=== PATIENT | female | born 1935 | race Caucasian/White ===

== ENCOUNTER 2022-03-23 11:47 | Outpatient (CLI) | payer MEDICARE, BC, SELFPAY | END 2022-03-23 11:48 | disposition home or self-care (01) | LOC: NFLDREF 11:47 | PROVIDERS: PCP Family Medicine; Visit Provider Physician Assistant | DX: Z01.419 Encounter for gynecological examination (general) (routine) without abnormal findings (principal); Z85.44 Personal history of malignant neoplasm of other female genital organs | CPT/HCPCS: 87624; 88175 ==

== ENCOUNTER 2022-04-09 09:19 | Outpatient (CLI) | payer MEDICARE, BC, SELFPAY ==
--- NOTE | 2022-04-09 09:43 | CRLHL7_ITS ---
For Patients: As a result of the Cures Act, medical imaging exams and procedure reports are released immediately into your electronic medical record. You may view this report before your referring provider. If you have questions, please contact your health care provider. RIGHT BREAST ULTRASOUND, 04/09/2022 PLEASE SEE DIGITAL DIAGNOSTIC BILATERAL MAMMOGRAM PERFORMED SAME DAY CRL:gema ribeiro/Dictated by: Kalpesh Daniel MD @ 04/09/2022 10:51:00 AM (Electronically Signed)
--- NOTE | 2022-04-09 09:43 | CRLHL7_ITS ---
For Patients: As a result of the Cures Act, medical imaging exams and procedure reports are released immediately into your electronic medical record. You may view this report before your referring provider. If you have questions, please contact your health care provider. DIGITAL DIAGNOSTIC BILATERAL MAMMOGRAM USING TOMOSYNTHESIS AND COMPUTER-AIDED DETECTION, 04/09/2022 RIGHT BREAST ULTRASOUND, 04/09/2022 CLINICAL HISTORY: RIGHT breast palpable lump. COMPARISON: 04/06/2021, 03/08/2020, 02/10/2019. TECHNIQUE: Digital BILATERAL mammogram in four projections. Tomosynthesis and CAD utilized. Real-time ultrasound imaging of RIGHT breast with imaging documentation. Scanning was performed by both the technologist and the radiologist. BREAST COMPOSITION: The breasts are heterogeneously dense, which may obscure small masses. FINDINGS: 3D CC and 3D MLO mammograms submitted bilaterally. Post surgical changes to the RIGHT breast noted in the lower outer quadrant. Benign calcifications noted throughout the RIGHT breast. No suspicious masses or architectural distortion. Benign calcifications also present within the LEFT breast. No adenopathy. Targeted RIGHT breast ultrasound performed in the area of concern. At 7 o`clock RIGHT breast 4 cm from the nipple there is a small subcutaneous nodule measuring 5 x 4 x 6 millimeters consistent with a sebaceous cyst. Post surgical changes noted with benign calcified fat necrosis. IMPRESSION: Benign findings RIGHT breast from prior surgery and incidental sebaceous cyst. No evidence of malignancy. RECOMMENDATIONS: Annual screening mammography. BI-RADS Category 2: Benign Results and recommendations discussed with the patient. A lay language report of this examination will be provided to the patient. Dictated by Kalpesh Daniel MD @ 04/09/2022 10:51:20 AM jj/Dictated by: Kalpesh Daniel MD @ 04/09/2022 10:51:00 AM (Electronically Signed)
== END 2022-04-09 09:20 | disposition home or self-care (01) ==
PROVIDERS: PCP Family Medicine; Visit Provider Physician Assistant
DX: N63.10 Unspecified lump in the right breast, unspecified quadrant; D05.10 Intraductal carcinoma in situ of unspecified breast
CPT/HCPCS: 76642; 77066; G0279

== ENCOUNTER 2023-06-17 09:36 | Outpatient (CLI) | payer MEDICARE, BC, SELFPAY ==
--- NOTE | 2023-06-17 10:15 | CRLHL7_ITS ---
For Patients: As a result of the Century Cures Act, medical imaging exams and procedure reports are released immediately into your electronic medical record. You may view this report before your referring provider. If you have questions, please contact your health care provider. BILATERAL SCREENING MAMMOGRAM WITH COMPUTER-AIDED DETECTION AND TOMOSYNTHESIS TECHNIQUE: CC and MLO views were obtained. These mammographic images have been obtained using full-field digital technique. These mammographic images were interpreted with the benefit of computer-aided detection. Breast tomosynthesis was used in this interpretation. COMPARISON FILM: 04/09/22, 04/06/21, 03/08/20. FINDINGS: The breasts are heterogeneously dense, which may obscure small masses. IMPRESSION: There is no radiographic evidence for malignancy. ASSESSMENT: BI-RADS Category 2: Benign RECOMMENDATION: Routine screening mammogram in 1 year. A lay language report of this examination will be provided to the patient. KALPESH US M.D. Diagnostic Radiologist [email or web address] Transcribed: 4:[address]/Dictated by: Kalpesh Us MD @ 06/17/2023 11:26:00 AM (Electronically Signed)
== END 2023-06-17 09:37 | disposition home or self-care (01) ==
LOC: MAMMO 09:37
PROVIDERS: PCP Family Medicine; Visit Provider Physician Assistant
DX: Z12.31 Encounter for screening mammogram for malignant neoplasm of breast (principal); R92.2 Inconclusive mammogram; Z85.3 Personal history of malignant neoplasm of breast
CPT/HCPCS: 77063; 77067

== ENCOUNTER 2023-07-03 10:28 | Outpatient (CLI) | payer MEDICARE, BC, SELFPAY ==
[2023-07-03 10:40] VITALS: BP 149/81; PULSE 85; RESP 16; O2SAT 97
[2023-07-03] MEDS: TETRACAINE 0.5% OPHTH 1 DROP EYE-BOTH ×3 (10:42→11:13)
[2023-07-03] MEDS: BRIMONIDINE TARTRATE 0.2% OPHTH 1 DROP EYE-BOTH ×2 (10:43→11:20)
--- NOTE | 2023-07-03 11:27 | P.OPTPRC_ITS ---
Procedure Note Date of procedure: 07/03/23 Will [facility] bill your pro fee for this procedure?: Yes Procedure Description: SURGEON: Beatriz Adamson MD PREOPERATIVE DIAGNOSIS: Posterior capsular opacity, right and left eye POSTOPERATIVE DIAGNOSIS: Posterior capsular opacity, right and left eye PROCEDURE: YAG laser capsulotomy, both eyes ANESTHESIA: Topical. ESTIMATED BLOOD LOSS: None PATHOLOGY SPECIMEN: None COMPLICATIONS: None INDICATIONS: See consult note for details. The risks, benefits and alternatives of the procedure were explained to the patient, who elected to proceed and signed informed consent to do so. PROCEDURE: The patient was brought to the pre-holding area where the right and left eyes were identified as the operative eyes. I placed my initials above the eyes. The following was given in both eyes: The patient received 2 sets of 1 drop of 0.5% tetracaine and 1 drop of 1% tropicamide. They also received 1 drop of 0.2% brimonidine. They received 1 drop of 0.5% tetracaine immediately prior to bringing them back for the procedure. The patient was then brought to the procedure room where the right and left eyes were again identified as the operative eyes. A YAG Peetr capsulotomy lens was placed on the right eye. The laser was administered using a total number of 9 shots with an energy of 2.4 mJ per shot for a total energy of 22 mJ. The patient tolerated the procedure well. A YAG Peter capsulotomy lens was placed on the left eye. The laser was administered using a total number of 9 shots with an energy of 2.4 mJ per shot for a total energy of 22 mJ. The patient tolerated the procedure well. DISPOSITION: The patient was taken back to the pre-holding area and given 1 drop of 0.2% brimonidine in both eyes. They were discharged to home in stable condition. The patient was instructed to call me or go to the emergency department with any sudden change, including dramatic loss of vision, severe pain in the eye or eyebrow region, nausea, or vomiting. The patient was instructed to use the 0.2% brimonidine 1 drop 2 times a day in both eyes for 1 week. The patient will follow up in the clinic in 1-2 weeks.
== END 2023-07-03 11:21 | disposition home or self-care (01) ==
LOC: EYE PRC 10:29
PROVIDERS: PCP Family Medicine; Visit Provider Ophthalmology
DX: H26.9 Unspecified cataract (principal)
CPT/HCPCS: 66821; A9270

== ENCOUNTER 2024-06-19 09:04 | Outpatient (CLI) | payer MEDICARE, BC, SELFPAY ==
--- OUTSIDE RECORDS SUMMARY | 2024-06-19 09:12 | XMS_ITS | Clinical Summary ---
Author Organization [facility] Address [address] [place] [id number] Care Team Providers Care Fish Protector Name Role Phone Octavio Lopez MD Primary Care Provider [phone] Source Comments You are receiving this document as you are listed as the primary care provider,follow-up provider, or the patient has been referred to you for consultation.This is in compliance with the Medicare and[facility]centive [facility],which states Providers who transition their patient to another setting of careor provider of care or refers their patient to another provider of care shouldprovide summary care record for each transition of care or referral. [id number] Allergies Active Allergy Reactions Criticality Noted Date Comments Ezetimibe Other, see comments 03/19/2012 Legs heavy and weak Hydrochlorothiazide Other, see comments 10/13/2022 Low potassium, and intolerance of oral potassium. Hydrocodone-Acetaminophen Itching 08/19/2013 PN: made scalp itch Medications Medication Sig Dispensed Refills Start Date End Date Status aspirin, enteric-coated 81 MG enteric coated tablet Take 1 Tablet (81 mg) by mouth. 04/17/2010 Active fluticasone (FLONASE) 50 MCG/ACT nasal solution 1 [place]. 08/27/2017 Active levothyroxine (SYNTHROID) 125 MCG tablet Take 0.5 Tablets (62.5 mcg) by mouth. 08/27/2017 Active Coenzyme Q10 100 MG Take 1 Capsule (100 mg) by mouth. 11/23/2015 Active atorvastatin (LIPITOR) 80 MG tablet Take 1 Tablet (80 mg) by mouth daily at bedtime. 05/19/2022 Active losartan (COZAAR) 50 MG tablet Take 1 Tablet (50 mg) by mouth daily. 05/15/2022 Active zolpidem (AMBIEN) 10 MG tablet Take 1 Tablet (10 mg) by mouth at bedtime as needed. 04/19/2022 Active Respiratory Therapy Supplies (CARETOUCH 2 CPAP [employer]) [facility] [place] for [place] use at pressure: 8.6 cmw , Heated humidifier x 1 q 5 yr, Humidifier chamber x 1 q 6 mo, nasal face mask x1 q 3mos, with cushion x 2 q mo, standard tubing x 1 q 3 mo, Headgear x 1 q 6 mo, Filters: Disposable x 2 q mo non-disposable filters x1 q 6mo, Length of Need: 99 months, Frequency of use: Daily 03/29/2022 Active spironolactone (ALDACTONE) 25 MG tablet Take 1 Tablet (25 mg) by mouth daily. 04/16/2023 Active Active Problems Problem Noted Date Diagnosed Date H/O dysplastic nevus 07/03/2022 Overview (07/03/2022): Inflamed hyperpigmented junctional dysplastic melanocytic nevus with moderate atypia, mid back, out with biopsy 08/2013 H/O nonmelanoma skin cancer 07/03/2022 Overview (07/10/2023): BCC: -left upper back, out with biopsy 03/2015 -left anterior shoulder, s/p ED&C 06/2015 -right upper arm-posterior, removed with biopsy 06/2022 Ductal carcinoma in situ (DCIS) of breast 2018 Osteoporosis 09/24/2017 Mixed hyperlipidemia 06/10/2016 Vulvar cancer 03/29/2009 Obstructive sleep apnea 03/28/2009 Allergic rhinitis 01/24/2007 Overview (07/11/2023): with congestion Degeneration of lumbar or lumbosacral interverte bral disc 01/24/2007 Essential hypertension 01/24/2007 Osteoarthrosis, unspecified whether generalized or localized, pelvic region and thigh 01/24/2007 Hypothyroidism 01/24/2007 Social History Tobacco Use Types Packs/Day Years Used Date Smoking Tobacco: Never Smokeless Tobacco: Never Sex and Gender Information Value Date Recorded Sex Assigned at Not on file Gender Identity Not on file Sexual Orientation Not on file Plan of Treatment Health Maintenance Due Date Last Done Comments Medicare Annual Wellness Visit 1935 Dexa 2002 RSV (1 - 1-dose 75+ series) 2012 COVID-19 Vaccine ( season) 2024 06/26/2022, 01/30/2022, 06/20/2021, Additional history exists Influenza (#1) 2024 06/12/2023, 05/10, 04/25/2021, Additional history exists DTaP/Tdap/Td (3 - Tdap) 05/30/2032 05/30/20, 07/23/2011, 03/09/2003 Zoster/Shingles Completed 11/16/2019, 12/2019, 02/24/2009 Pneumococcal 65+ Yrs Completed 10/12/2022, 12/30/2014, 04/07/2009 HepA Aged Out No longer eligi ble based on patient's age to complete this topic HepB Aged Out No longer eligi ble based on patient's age to complete this topic Hib Aged Out No longer eligi ble based on patient's age to complete this topic IPV ([place]) Aged Out No longer eligi ble based on patient's age to complete this topic RSV Aged Out No longer eligi ble based on patient's age to complete this topic MCV4 Aged Out No longer eligi ble based on patient's age to complete this topic Care Teams Fish Protector Relationship Specialty Start Date End Date Octavio Lopez MD [address] [place] [address] PCP - General 06/14/15
--- OUTSIDE RECORDS SUMMARY | 2024-06-19 09:12 | XMS_ITS | Clinical Summary ---
Author Organization [facility] Address [place], [place] [address] Care Team Providers Care Mammography Tech Name Role Phone Octavio Lopez MD Primary Care Provider Marilee Kinney Unavailable [phone] Audie Segura MD Unavailable [phone] Allergies Active Allergy Reactions Criticality Noted Date Comments Hydrochlorothiazide Hypokalemia 10/13/2022 Low potassium, and intolerance of oral potassium. Hydrocodone-Acetaminophen Itching 01/24/2007 scalp itchy Ezetimibe Other - Describe In Comment Field 03/19/2012 Legs heavy and weak Medications Medication Sig Dispensed Refills Start Date End Date Status aspirin enteric coated 81 mg tablet Take 1 tablet by mouth once daily with a meal. 0 04/17/2010 Active coenzyme q10 (COQ-10) 100 mg cap Take 1 capsule by mouth once daily. 0 11/23/2015 Active multivitamin (MVI) tablet Take 1 tablet by mouth once daily. 0 11/23/2015 Active fluticasone (50 mcg per actuation) nasal solution (FLONASE)Indications:V asomotor rhinitis SHAKE LIQUID AND USE 1 SPRAY IN EACH NOSTRIL EVERY DAY 48 mL 3 09/09/2018 Active atorvastatin (LIPITOR) 80 mg tabletIndications:Hype rlipidemia, unspecified hyperlipidemia type Take 1 Tablet (80 mg) by mouth at bedtime. 90 Tablet 3 10/14/2023 Active levothyroxine (SYNTHROID) 125 mcg tabletIndications:Acqu ired hypothyroidism Take 0.5 Tablets (62.5 mcg) by mouth once daily. 45 Tablet 3 10/14/2023 Active losartan (COZAAR) 50 mg tabletIndications:Esse ntial hypertension Take 1 Tablet (50 mg) by mouth once daily. 90 Tablet 3 10/14/2023 Active spironolactone (ALDACTONE) 25 mg tabletIndications:Deni gn essential HTN Take 1 Tablet (25 mg) by mouth every morning. 90 Tablet 3 10/14/2023 Active zolpidem (AMBIEN) 10 mg tabletIndications:Prim antelmo insomnia TAKE 1 TABLET (10 MG) BY MOUTH AT BEDTIME NEEDED FOR SLEEP 90 Tablet 1 04/24/2024 Active metoprolol succinate (Toprol XL) 25 mg Sustained-Release tabletIndications:Palp itations Take 1 Tablet (25 mg) by mouth once daily. 90 Tablet 4 04/28/2024 Active sertraline (ZOLOFT) 25 mg tabletIndications:Marketing Copywriter anabell insomnia Take 0.5 Tablets (12.5 mg) by mouth once daily. 30 Tablet 2 05/04/2024 Active CPAPIndications:Obstru ctive sleep apnea RESMED CPAP (E0601) machine for home use at pressure: 7.6 cmw, Choice of mask (A7030 or A7034) w/full face cushion (A7031) x1/mo, nasal cushion (A7032) x2/mo, or nasal pillows (A7033) x 2/mo; Length of Need: 99 months; Frequency of use: Daily 1 Each 11 05/04/2024 Active Active Problems Patient Care Coordination No te Formatting of this note migh t be different from the original. Sees gynecologic dermatology, Dr. Lisset Fournier for f/u vulvar cancer. Problem Noted Date Diagnosed Date Depression, recurrent 02/10/2024 Osteoporosis (completed 5 yrs of Alendronate 202 3) 09/24/2017 Prediabetes 06/10/2016 Mixed hyperlipidemia 06/10/2016 Vulvar cancer 03/29/2009 ALEENA, 03/16/2009 AHI- 32, positional 75 03/28/2009 Sensorineural hearing loss, bilateral 02/28/2009 Unspecified hypothyroidism 01/24/2007 Degeneration of lumbar or lumbosacral interverte bral disc 01/24/2007 Osteoarthrosis, unspecified whether generalized or localized, pelvic region and thigh 01/24/2007 Unspecified essential hypertension 01/24/2007 Other malignant neoplasm of skin, site unspecifi ed 01/24/2007 Allergic rhinitis, cause unspecified 01/24/2007 Overview (01/24/2007): with congestion Resolved Problems Problem Noted Date Diagnosed Date Resolved Date Depression, recurrent 07/15/20232023 Personal history of colonic polyps 04/11/2012 10/14/2023 Overview (04/11/2012): Colonoscopy 04/2012 diverticulosis repeat in 5 years Vitamin D deficiency 02/27/2010 013 Vitamin D deficiency 02/24/2009 019 Long-term (current) use of anticoagulants 07/12/2008 10/22/2017 Other and unspecified hyperlipidemia 01/24/2007 08/31/2019 Insomnia, unspecified 01/24/20072021 Encounters Date Type Department Care Team Description 05/04/2024 10:30 AM CDT Office Visit [facility] [address] [place] [address] Keyon Emerson MD Sleep Follow-up 05/04/2024 Travel 04/28/2024 9:00 AM CDT Office Visit [facility] [address] [place] [address] Britton Bradley MD Consult (Palpitations/Echo 03/04/24 /) 04/28/2024 Travel 04/24/2024 Refill [facility] [address] [place] [address] Octavio Lopez MD Refill Request (Zolpidem) 04/01/2024 Lab Requisition [facility] [phone] Charline Anton PA-C from Last 3 Months Immunizations Name Administration Dates Next Due AMB Influenza, (Flumist) Rosmery e Intranasal,LAIV4 (Flu Clinic Only) 06/09/2008 COVID-19 VACCINE SPIKEVAX (M ODERNA 50MCG/0.5ML) 12YO+ PFS 07/15/2023 COVID-19 vaccine ([employer] NTWholeWorldBand 30mcg/0.3mL) PF, MDV 01/30/2022,06/20/2021,11/03/2020,2020 Influenza Virus, Unspecified 05/22/2016,06/09/20 15 Influenza, High-dose Inactivated 019,05/13/2018,05/28/2017,2015,05/19/2015,06/02/2014 Influenza, High-dose Quadriv alent Inactivated 06/12/2023,05/23/2022,04/25/2021,2019 Influenza, IIV3 (Age >=3 years) 05/23/20 13,05/29/2012,06/08/2011,2009 Influenza, Inactivated AIIV4 (Age 65+ Years) Preserv Free 04/25/2021 Influenza, Inactivated IIV3 (Age 65+ Years) Preserv Free 06/09/2018 Pneumococcal Conj 20-valent (Prevnar 20) 10/12/2022 Pneumococcal Poly,23-Valent (Pneumovax) 04/07/2009 Pneumococcal conj 13-Valent (Prevnar 13) 12/30/2014 Td (Age >=7 Years) 03/09/2003 Tdap 05/30/2022,07/23/2011 Zoster (Shingrix-RZV, recombinant) 11/16/2019, Zoster (Zostavax-ZVL, live) 02/24/2009 Family History Medical History Relation Name Comments Hypertension Brother 1 Diabetes Brother 2 Alcohol/Drug Brother 3 at 49 - diabetes and alcoholism Alcohol/Drug Father Hypertension Maternal Grandmother Heart a ttack at age 50 Cancer Mother cervix Hypertension Mother Anesthesia Problem Neg. Hypertension Sister 1 Alcohol/Drug Sister 2 age 65 cancer of the liver and sepsis Cancer Sister 3 liver Cancer Son age 5 Relation Name Status Comments Brother 1 Brother 2 Brother 3 Father Maternal Grandmother Mother Neg. Sister 1 Sister 2 Sister 3 Son Social History Tobacco Use Types Packs/Day Years Used Date Smoking Tobacco: Never Smokeless Tobacco: Never Tobacco Cessation:Counseling Given: No Alcohol Use Standard Drinks/Week Comments Yes 14 (1 standard drink = 0.6 oz pu re alcohol) 1-2 drinks/day PHQ-2 Answer Date Recorded PHQ-2 TOTAL SCORE 2 10/14/2023 Social Connections Answer Date Recorded Frequency of Communication with Friends and Fami ly 0 10/14/2023 Financial Resource Strain Answer Date R ecorded Difficulty of Paying Living Expenses 3 10/14/2023 Difficulty of Paying Living Expenses Not on file 10/14/2023 Food Insecurity Answer Date Recorded Worried About Running Out of Food in the Last Ye ar 1 10/14/2023 Transportation Needs Answer Date Record ed Lack of Transportation (Medical) 1 10/14/2023 Housing Stability Answer Date Recorded Unable to Pay for Housing in the Last Year 1 02/10/2024 Sex and Gender Information Value Date Recorded Sex Assigned at Not on file Gender Identity Not on file Sexual Orientation Not on file Obstetrics History Para Term AB IAB SAB Ectopic Multiple Livin g Live Births 3 2 Date Outcome GA Total Labor Labor/2nd/3rd Weight Sex Type Anes PTL Rosmery A1 A5 Name Clin Comments First child of cancer Last Filed Vital Signs Vital Sign Reading Time Taken Comments Blood Pressure 122/71 05/04/2024 10:29 AM CDT Pulse 80 05/04/2024 10:29 AM CDT Temperature 36.4 ??C (97.6 ??F) 08/31/2019 10:[address] Respiratory Rate 16 11/04/2018 10:29 AM SENIOR SALES ADMINISTRATOR Oxygen Saturation 98% 05/04/2024 10:29 AM CDT Inhaled Oxygen Concentration - - Weight 68 kg (150 lb) 05/04/2024 10:29 AM CDT Height 160 cm (5' 3) 05/04/2024 10:29 AM CDT Body Mass Index 26.57 05/04/2024 10:29 AM CDT Plan of Treatment Upcoming Encounters Date Type Department Care Team (Late st Contact Info) Description 07/13/2024 10:55 AM SENIOR SALES ADMINISTRATOR Office Visit [facility] [address] [place] [address] Octavio Lopez MD [address] [place] [address] 08/13/2024 10:30 AM SENIOR SALES ADMINISTRATOR Office Visit [facility] [address] [place] [address] Keyon Emerson MD [address] [place] [address] Health Maintenance Due Date Last Done Comments RSV vaccine for adults or (1 - 1-dose 75+ series) 2012 Influenza for age 65+ 05/10/2024 06/12/2023 , 05/23/2022, 04/25/2021, Additional history exists Depression screening for age 12+ 10/14/2024 10/14/2023, 10/13/2022, 10/12/2022, Additional history exists Medicare Wellness for age 65+ 10/14/2024, 10/12/2022, 10/10/2021, Additional history exists BMI (ht and wt on same day) for age 18+ 05/04/2025 05/04/2024, 10/14/2023, 05/02/2023, Additional history exists Tetanus booster 05/30/2032 05/30/2022, 07/10, 03/09/2003 Zoster (shingles) series for age 50+ Completed 11/16/2019, 09/12/2019, 02/24/2009 Tdap Completed 05/30/2022, 07/23/2011 Pneumococcal series for age 65+ Completed 10/12/2022, 12/30/2014, 04/07/2009 DEXA/DXA scan for age 65+ Completed 2022, 09/05/2017, 08/11/2015, Additional history exists COVID-19 vaccine series Completed 05/29/20, 07/15/2023, 06/26/2022, Additional history exists Procedures Procedure Name Priority Date/Time Associated Diagnosis Comments LAB TRACKING EVENT Routine 03/31/2024 12 :30 PM CDT GENERAL ACCOUNTANT THIN PREP PAP SCREEN IMAGED Routine 03/31/2024 12:30 PM CDT HPV HIGH RISK Routine 03/31/2024 12:30 PM CDT XR DXA BONE DENSITY PERIPHERAL Routine 10/22/2022 1:27 PM SENIOR SALES ADMINISTRATOR Osteoporosis, unspecified osteoporosis type, unspecified pathological fracture presence from Last 3 Months or Most Recently Relevant to Health Maintenance Results * LAB TRACKING EVENT (03/31/2024 12:30 PM CDT) Other (Other) Client Collect / Unknown 03/31/2024 12:30 PM CDT 04/01/2024 3:44 PM CDT Charline Anton PA-C LAB BILL ONLY [facility] [address] [place] [address], * GENERAL ACCOUNTANT THIN PREP PAP SCREEN IMAGED (03/31/2024 12:30 PM CDT) Case Report Gynecologic Cytology Report ? Case: [id number] ? Authorizing Provider: ??Charline Anton PA-C ?Collected: ? 03/31/2024 1230 ? Ordering Location: ? [facility] ?Received: ?04/01/2024 1712 ? First Screen: ?Chacha Moore ? Specimen: ?GENERAL ACCOUNTANT ThinPrep Vial Screening, Vaginal Cuff ? 04/08/2024 2:21 PM CDT [facility] INTERPRETATION/ RESULT NEGATIVE FOR INTRAEPITHELIAL LESION OR MALIGNANCY (NIL) (none) 04/08/2024 2:[address] [facility] IMEN ADEQUACY Satisfactory for evaluation 04/08/2024 2:[address] [facility] HPV REQUEST HPV and PAP 04/08/2024 2:[address] [facility] Date of LMP 04/08/2024 2:21 PM CDT [facility] Comment:unknown Last Pap Date 03/26/2023 04/08/2024 2:[address] [facility] Last Pap Result NIL 2:[address] [facility] Abnormal Pap or Thomas Bx in last 5 years No 04/08/2024 2:[address] [facility] Menstrual Status Hysterectomy-cerv ix absent 04/08/2024 2:[address] [facility] Thomas Bx Done Today No 04/08/2024 2:[address] [facility] Additional Information 04/08/2024 2:21 PM CDT [facility] Comment: hx malignant neoplasm of vulva Interpreted at [facility] - [address] [facility] [address] [address] Automated Review Successful 04/08/2024 2:[address] [facility] Comment:Specimen processed s uccessfully by automated foot drill operator device, ThinPrep Imaging System, [employer] ANCILLARY TESTING GENERAL ACCOUNTANT HPV Ordered, Please see separate report 04/08/2024 2:[address] [facility] Note The pap test is a screening technique, not a diagnostic procedure. It is used primarily to screen for squamous cancers and precursor lesions. Published studies have shown that it is subject to both false negative and false positive results. The pap test should not be used as the sole means to diagnose or exclude pre-malignant and malignant lesions. 04/08/2024 2:21 PM CDT [facility] Other (Vaginal Cuff) 03/31/2024 12:30 PM CDT 04/01/2024 5:12 PM CDT Charline Corral Dese[facility] Performing Organization Address [facility] Co de Phone Number [facility] [address] [place] [address], * HPV HIGH RISK (03/31/2024 12:30 PM CDT) TYPE 16 Negative Negative 04/04/2024 2:15 PM CDT [facility] TYPE 18 Negative Negative 04/04/2024 2:15 PM CDT [facility] OTHER HIGH RISK TYPES Negative Negative 04/04/2024 2:15 PM CDT [facility] Other (Vaginal Cuff) 03/31/2024 12:30 PM CDT 04/01/2024 5:12 PM CDT Narrative [facility] - 04/04/2024 2:15 PM CDT HPV types 16, 18, 31, 33, 35, 39, 45, 51, 52, 56, 58, 59, 66 and 68 DNA were undetectable or below the pre-set threshold. Methodology: [employer] Norma 4800 HPV Test Charline Ellis Anton PA-C MICROBIOLOGY Performing Organization Address [facility] de Phone Number [facility] [address] [place] [address], * (ABNORMAL) XR DXA BONE DENSITY PERIPHERAL (10/22/2022 1:27 PM SENIOR SALES ADMINISTRATOR) Anatomical Region Laterality Modality ARMS Other Impressions 10/29/2022 7:56 AM SENIOR SALES ADMINISTRATOR Osteoporosis. RECOMMENDATIONS: The National Osteoporosis Foundation recommends pharmacologic treatment for patients with T-scores of -2.5 or less, patients with prior history of fragility fractures, or patients with 10-year probability of greater than 3% at hips or greater than 20% of suffering major osteoporotic fractures. Recommend continued optimization of calcium and vitamin D intake through dietary means and/or supplementation and regular exercise. Consider pharmacologic therapy for osteoporosis. Follow-up bone density reading in 2 years if therapy initiated to assess therapeutic efficacy. ?? Consider drug holiday from Fosamax due to being on medications for 5 years. ??Consider alternative therapies. Brisa Flores PA-C [facility] 10/29/2022 Narrative 10/29/2022 7:56 AM SENIOR SALES ADMINISTRATOR For Patients: Results are automatically released to your [facility] ([employer]) account once available, in compliance with federal regulations. This means that you may see your results before your provider has had a chance to review them. Please allow 2-3 business days for your provider to comment on the results. XR DXA Bone Mineral Density (BMD) EXAM LOCATION: [address] [address] PATIENT NAME: Susie Goodwin DATE OF : 1935 EXAM DATE: 10/22/2022 REQUESTING PROVIDER: Octavio Lopez MD GENDER AT : female HEIGHT: 5' 2.8 (10/12/2022) WEIGHT: ??163 lb (10/12/2022) MENOPAUSAL STATUS: Postmenopausal RACE/ETHNICITY: White RISK FACTORS: Height Loss (2 inches or more) and White Race CURRENT MEDICATION FOR BONE LOSS: Alendronate (Fosamax) INDICATION: Follow-up of existing osteoporosis COMPARISON DATE(S): 2016 DXA scans are compared to prior studies for a patient only when the two (or more) studies were performed on the same scanner. It is not possible to compare data generated on one scanner to data from another because there are not standards in DXA equipment. This applies even if the two scanners are made by the same change release manager. PROCEDURE: Dual-energy x-ray absorptiometry performed with routine technique. Reporting is completed in the form of a T-score. The T-score represents the standard deviation from peak bone mass based on young healthy adult. A Z-score is used for diagnosis in premenopausal women, and for men under the age of 50. FINDINGS: RESULT FOREARM LEFT Forearm distal radius BMD: 0.555 g/cm2 T-Score: - 2.0 Z-Score: + 1.3 Change from prior in 2017: ??Increase 17.3%. RIGHT Forearm distal radius BMD: 0.515 g/cm2 T-Score: - 2.6 Z-Score: + 0.6 Change from prior in 2017: ??Increase 2.0%. WHO criteria: Normal: T-score at or above -1 SD Osteopenia: T-score between -1.1 and -2.4 SD Osteoporosis: T-score at or below -2.5 SD Octavio Lopez MD DEXA from Last 3 Months or Most Recently Relevant to Health Maintenance Advance Directives * Full Code (Latest Code Status on File) Date Activated Date Inactivated Comments 04/06/2009 12:55 PM 04/07/2009 1:43 PM * Full Code Date Activated Date Inactivated Comments 04/06/2009 7:59 AM 04/06/2009 12:55 PM Care Teams Mammography Tech Relationship Specialty Start Date End Date Octavio Lopez MD [address] [place] [address] PCP - General Family Practice 07/23/11 Marilee Kinney AuD [address] [place] [address] Audiology 02/28/09 Audie Segura MD Ana Sheppard [facility] [address] [place] [address] Endocrinology Endocrinology 05/27/13
--- NOTE | 2024-06-19 09:15 | CRLHL7_ITS ---
For Patients: As a result of the Century Cures Act, medical imaging exams and procedure reports are released immediately into your electronic medical record. You may view this report before your referring provider. If you have questions, please contact your health care provider. BILATERAL SCREENING MAMMOGRAM WITH COMPUTER-AIDED DETECTION AND TOMOSYNTHESIS TECHNIQUE: CC and MLO views were obtained. These mammographic images have been obtained using full-field digital technique. These mammographic images were interpreted with the benefit of computer-aided detection. Breast Tomosynthesis was used in this interpretation. COMPARISON FILM: 06/17/23, 04/09/22, 04/06/21. FINDINGS: The breasts are heterogeneously dense, which may obscure small masses. IMPRESSION: There is no radiographic evidence for malignancy. ASSESSMENT: BI-RADS Category 1: Negative RECOMMENDATION: Routine screening mammogram in 1 year. A lay language report of this examination will be provided to the patient. Kalpesh Daniel M.D. Diagnostic Radiologist [email or web address] SP/Dictated by: Kalpesh Daniel MD @ 06/19/2024 10:04:00 AM (Electronically Signed)
== END 2024-06-19 09:05 | disposition home or self-care (01) ==
LOC: MAMMO 09:08
PROVIDERS: PCP Family Medicine; Visit Provider Physician Assistant
DX: Z12.31 Encounter for screening mammogram for malignant neoplasm of breast (principal); R92.333 Mammographic heterogeneous density, bilateral breasts
CPT/HCPCS: 77063; 77067

== ENCOUNTER 2024-07-07 10:12 | Emergency (ER) | payer MEDICARE, BC, SELFPAY ==
[2024-07-07] VITALS (18 sets, daily range): BP systolic 129–145; BP diastolic 78–86; PULSE 83–103; RESP 18; TEMP 36.7; O2SAT 95–99; BMI 25.2
--- NOTE | 2024-07-07 10:52 | CRLHL7_ITS ---
For Patients: As a result of the Century Cures Act, medical imaging exams and procedure reports are released immediately into your electronic medical record. You may view this report before your referring provider. If you have questions, please contact your health care provider. Indication: Syncope/unconscious yesterday Technique: Noncontrast sagittal T1 weighted, axial T2 fast spin echo, FLAIR, and diffusion weighted images of the head. Comparison: No prior studies available for comparison at this institution. Findings: Multiple scattered foci of increased T2 signal within the periventricular and subcortical white matter of both cerebral hemispheres. Moderate cerebral and cerebellar parenchymal volume loss. Partially empty sella. The optic chiasm, pineal gland, and cerebellar tonsils are unremarkable. The ventricles, sulci and gyri are of normal size, shape and contour for age and degree of atrophy. No regions of restricted diffusion. No pathologic susceptibility artifacts. Midline structures are centrally located. No convincing evidence of suspicious intra- or extra-axial fluid collections. Bilateral pseudophakia. Moderate mastoid effusions. Impression: 1. No radiographic evidence of acute intracranial abnormalities. 2. Moderate supratentorial and infratentorial white matter changes are non-specific but most likely related to small vessel ischemic disease. Moderate cerebral volume loss. 3. Moderate mastoid effusions Dictated by Kalpesh Marino MD @ 07/07/2024 1:04:23 PM (Electronically Signed)
--- OUTSIDE RECORDS SUMMARY | 2024-07-07 11:26 | XMS_ITS | Clinical Summary ---
Author Organization [email or web address] [facility] Address [place], [place] [address] Care Team Providers Care Diabetes Manager Name Role Phone Octavio Lopez MD Primary Care Provider Diana Marilee Daniela Unavailable [phone] Audie Segura MD Unavailable [phone] Allergies Active Allergy Reactions Criticality Noted Date [...] 4 04/28/2024 Active sertraline (ZOLOFT) 25 mg tabletIndications:Bow Rehairer anabell insomnia Take 0.5 Tablets (12.5 mg) [...] Encounters Date Type Department Care Team Description 07/07/2024 Nurse Triage [facility] [address] [place] [address] Maribel Verma PA Fall (Triage) 06/19/[address] [facility] Scanner 1 scan: (1-Ord) HARTWELL, SCREENING BILATERAL, 06/19/2024 05/04/2024 10:30 AM CDT Office Visit [facility] [address] [place] [address] Keyon Emerson MD Sleep Follow-up 05/04/2024 Travel 04/28/2024 9:00 AM CDT Office Visit [facility] [place] [facility] [address] [place] [address] Britton Bradley MD Consult (Palpitations/Echo 03/04/24 /) 04/28/2024 Travel 04/24/2024 Refill [facility] [address] [place] [address] Octavio Lopez MD Refill Request (Zolpidem) from Last 3 Months Immunizations Name Administration Dates Next Due AMB Influenza, (Flumist) Rosmery e Intranasal,LAIV4 (Flu Clinic Only) 06/09/2008 COVID-19 VACCINE SPIKEVAX (M ODERNA 50MCG/0.5ML) 12YO+ PFS 07/15/2023 COVID-19 vaccine (Pfizer-Bio NTech 30mcg/0.3mL) PF, MDV 01/30/2022,06/20/2021,11/03/2020,2020 Influenza Virus, Unspecified [...] 2 10/14/2023 Social Connections Answer Date Recorded Do you often feel lonely or isolated from those around you? 0 02/10/2024 Financial Resource Strain Answer Date R ecorded Difficulty of Paying Living Expenses 3 10/14/2023 Difficulty of Paying Living Expenses Not on file 10/14/2023 Food Insecurity Answer Date Recorded Do you worry your food will run out before you are able to buy more? 1 02/10/2024 Transportation Needs Answer Date Record ed Does lack of transportation keep you from medica l appointments? 1 02/10/2024 Does lack of transportation keep you from work, meetings or getting things that you need? 1 02/10/2024 Housing Stability Answer Date Recorded What is your housing situation today? 1 02/10/2024 Sex and Gender Information Value [...] ST Respiratory Rate 16 11/04/2018 10:29 AM PRIVATE EQUITY ANALYST Oxygen Saturation 98% 05/04/2024 10:29 AM CDT Inhaled Oxygen Concentration - - Weight 68 kg (150 lb) 05/04/2024 10:29 AM CDT Height 160 cm (5' 3) 05/04/2024 10:29 AM CDT Body Mass Index 26.57 05/04/2024 10:29 AM CDT Plan of Treatment Upcoming Encounters Date Type Department Care Team (Late st Contact Info) Description 07/13/2024 10:55 AM PRIVATE EQUITY ANALYST Office Visit [facility] [address] [place] [address] Octavio Lopez MD [address] [place] [address] 08/13/2024 10:30 AM PRIVATE EQUITY ANALYST Office Visit [facility] [address] [place] [address] Keyon Emerson MD [address] [place] [address] Health Maintenance Due Date Last Done Comments [...] Procedure Name Priority Date/Time Associated Diagnosis Comments SCAN-MAMMOGRAPHY REPORT 06/19/2024 12:00 AM CDT XR DXA BONE DENSITY PERIPHERAL Routine 10/22/2022 1:27 PM PRIVATE EQUITY ANALYST Osteoporosis, unspecified osteoporosis type, unspecified pathological fracture presence from Last 3 Months or Most Recently Relevant to Health Maintenance Results * SCAN-MAMMOGRAPHY REPORT (06/19/2024 12:00 AM CDT) Anatomical Region Laterality Modality Other Scanner OTHER * (ABNORMAL) XR DXA BONE DENSITY PERIPHERAL (10/22/2022 1:27 PM PRIVATE EQUITY ANALYST) Anatomical Region Laterality Modality ARMS Other Impressions 10/29/2022 7:56 AM PRIVATE EQUITY ANALYST Osteoporosis. RECOMMENDATIONS: The National Osteoporosis Foundation recommends [...] years. ??Consider alternative therapies. Brisa Flores PA-C [facility] 10/29/2022 Narrative 10/29/2022 7:56 AM PRIVATE EQUITY ANALYST For Patients: Results are automatically released to your [employer] ([email or web address] account once available, in compliance with federal regulations. This means that you may see your results before your provider has had a chance to review them. Please allow 2-3 business days for your provider to comment on the results. XR DXA Bone Mineral Density (BMD) EXAM LOCATION: [facility] [address] [facility] [address] PATIENT NAME: Susie Goodwin DATE OF : [...] two scanners are made by the same manufacturing production technician. PROCEDURE: Dual-energy x-ray absorptiometry performed with routine [...] 7:59 AM 04/06/2009 12:55 PM Care Teams Diabetes Manager Relationship Specialty Start Date End Date Octavio Lopez MD [address] [place] [address] PCP - General Family Practice 07/23/11 Marilee Ortiz AuD [address] [place] [address] Audiology 02/28/09 Audie Segura MD [address] [facility] [address] [place] [address] Endocrinology Endocrinology 05/27/13
--- OUTSIDE RECORDS SUMMARY | 2024-07-07 11:26 | XMS_ITS | Clinical Summary ---
Author Organization [facility] Address [address] [place] [address] Care Team Providers Care Patient Financial Rep Name Role Phone Octavio Lopez MD Primary Care Provider [phone] Source Comments You are receiving this document as you are listed as the primary care provider,follow-up provider, or the patient has been referred to you for consultation.This is in compliance with the Medicare and[facility] Hospital[facility] EHR Incentive Program,which states Providers who transition their patient to another setting of careor provider of care or refers their patient to another provider of care shouldprovide summary care record for each transition of care or referral. [employer] Allergies Active Allergy Reactions Criticality Noted Date [...] fluticasone (FLONASE) 50 MCG/ACT nasal solution 1 [place]. 08/27/2017 Active levothyroxine (SYNTHROID) 125 MCG tablet [...] Respiratory Therapy Supplies (CARETOUCH 2 CPAP HOSE EXCHANGE FLOOR MANAGER) [facility] [place] for [place] use at pressure: [...] age to complete this topic Care Teams Patient Financial Rep Relationship Specialty Start Date End Date Octavio Lopez MD [address] [place] [address] PCP - General 06/14/15
[2024-07-07 11:29] LABS: Basophils Absolute Auto 0.03 K/uL (0.00-0.30); Basophils Percent Auto 0.4 % (0.0-3.0); Eosinophils Absolute Auto 0.13 K/uL (0.00-0.50); Eosinophils Percent Auto 1.7 % (0.0-7.0); Hematocrit 37.2 % (33.0-51.0); Hemoglobin* 12.2 gm/dL (12.0-16.0); Immature Granulocytes Abs Auto 0.01 K/uL (0.00-0.30); Immature Granulocytes Pct Auto 0.1 %; Lymphocytes Absolute Auto 1.59 K/uL (0.90-2.90); Lymphocytes Percent Auto 20.6 % (20-44); Mean Corpuscular HGB Conc 33 gm/dL (32-36); Mean Corpuscular Hemoglobin 32 pg (26-34); Mean Corpuscular Volume 97 fL (80-100); Monocytes Percent Auto 6.6 % (0.0-11.0); Neutrophils Absolute Auto 5.44 K/uL (1.7-7.0); Neutrophils Percent Auto 70.6 % (42.0-72.0); Platelet Count* 247 K/uL (140-440); RDW Coefficient of Variation % 13.1 % (11.5-15.5); Red Blood Count 3.82 m/uL (4.00-5.20); White Blood Count* 7.71 K/uL (4.50-11.00)
[2024-07-07 11:37] LABS: Slide Review Reflex No
[2024-07-07 11:37] LABS: Troponin, Point-of-Care* 0.01 ng/ml (0.01-0.04)
[2024-07-07 11:45] LABS: Chloride* 97 mmol/L (96-114); Potassium* 3.8 mmol/L (3.6-5.1); Sodium* 132 mmol/L (135-149)
[2024-07-07 11:48] LABS: Anion Gap 15 mEq/L (7-15); Carbon Dioxide* 20 mmol/L (20-32); Creatinine* 1.1 mg/dL (0.5-1.5); Est. Creatinine Clearance* 31.11; Estimated Glomerular Filt Rate 49 ml/min
[2024-07-07 11:49] LABS: Blood Urea Nitrogen* 22 mg/dL (7-30); Calcium* 9.3 mg/dL (8.4-10.6); D Dimer Quantitative* 0.94 ug/ml (0.00-0.50); Glucose* 78 mg/dL (60-115)
[2024-07-07 12:55] LABS: TSH With Reflex to FT4* 0.728 uIU/mL (0.270-4.200)
--- NOTE | 2024-07-07 12:57 | ED.GENADULT ---
HPI - General Adult General Date Seen: 07/07/24 Chief complaint: Syncope/Fainted Stated complaint: Fell yesterday lost consciousness Time Seen by Provider: 07/07/24 10:36 Source: patient and family Mode of arrival: ambulatory Limitations: no limitations History of Present Illness HPI narrative: Patient is an 89-year-old woman who lives independently. She is here with her son and [id number] for evaluation after an unusual day yesterday. She says that she got up at 7:30 a.m. and went into the TV room to open the blinds. She says that she had no symptoms of any kind, did not feel lightheaded or faint, tunnel vision, did not have headache, chest pain, palpitations, shortness of breath, abdominal back pain or any other warning signs, but next thing she knew she woke up on the floor. She then says that she just felt so tired and weak, diffusely, that she was unable to get up for the next 6-8 hours. She says that she would wake up every once in a while kind of hold her hands in front of her face and then fall back asleep. She says around 3:00 p.m. she finally felt able to get up off of the floor and she walked or crawled she is not sure, she says she does not really remember to her bedroom where she got into bed. Her son comes over every day at 4:30 a.m. to watch jeopardy, he found her in bed instead of up and around getting ready to watch TV as usual. He notes that he woke her up and she seemed groggy but no focal neurologic symptoms, no difficulty with speech or balance, no facial droop or weakness. 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 She started on 25 mg daily metoprolol he feels that she has just been a little more ?flighty or tired since starting that medication. She says today she feels pretty much back to normal and was not going to be seen, but her daughter in-law insisted that she at least call the clinic. She did make an appointment for this afternoon with the clinic but then received a call saying she should come to the ER instead. She does not take any other medications which are overly sedating. Does not use any substances. Related Data Home Medications ?Medication ?Instructions ?Recorded ?Confirmed atorvastatin 20 mg tablet mg PO DAILY 03/23/22 03/31/24 coenzyme Q10 100 mg capsule mg PO DAILY 03/23/22 03/31/24 fluticasone propionate 50 2 spray intranasal QDAY 03/23/22 03/31/24 mcg/actuation nasal spray,suspension (Allergy Relief (fluticasone)) levothyroxine 13 mcg capsule 6.25 mcg PO QDAY 03/23/22 03/31/24 magnesium oxide 400 mg (241.3 mg mg PO DAILY 03/23/22 03/31/24 magnesium) tablet multivitamin with iron 1 tab PO QDAY 03/23/22 03/31/24 valsartan 320 mg tablet mg PO DAILY 03/23/22 03/31/24 zolpidem 10 mg tablet mg PO .Bedtime as needed PRN 03/23/22 03/31/24 spironolactone 25 mg tablet 25 mg PO DAILY 03/26/23 03/31/24 Allergies Allergy/AdvReac Type Severity Reaction Status Date / Time ragweed pollen Allergy Intermediate Seasonal Verified 03/31/24 11:42 ezetimibe Allergy Mild Leg Verified 03/31/24 11:42 weakness, heaviness hydrocodone Allergy Mild Itchy scalp Verified 03/31/24 11:42 Review of Systems Status of ROS: Reports: 10 or more systems reviewed and unremarkable except as noted in History and below [facility] Medical History Osteopenia ?M85.80 - Other specified disorders of bone density and structure, unspecified site (ICD-10) Hypothyroidism ?E03.9 - Hypothyroidism, unspecified (ICD-10) Hypertension ?I10 - Essential (primary) hypertension (ICD-10) History of malignant neoplasm of vulva ?Z85.44 - Personal history of malignant neoplasm of other female genital organs (ICD-10) 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 - Intraductal carcinoma in situ of unspecified breast (ICD-10) Surgical History History of vulvectomy ?Z90.79 - Acquired absence of other genital organ(s) (ICD-10) History of ?Z98.891 - History of uterine scar from previous surgery (ICD-10) Status post total hysterectomy and bilateral salpingo-oophorectomy (BSO) ?Z90.710 - Acquired absence of both cervix and uterus (ICD-10) ?Z90.722 - Acquired absence of ovaries, bilateral (ICD-10) ?Z90.79 - Acquired absence of other genital organ(s) (ICD-10) Status post right breast lumpectomy ?Z98.890 - Other specified postprocedural states (ICD-10) Status post bilateral hip replacements ?Z96.643 - Presence of artificial hip joint, bilateral (ICD-10) Social History Narrative: The patient is a retired registered nurse. She is . She has a college level education. She is a nonsmoker. One alcoholic drink per day. No recreational drug use. Exercises regularly. No dietary restrictions. Feels safe at home. No concerns with abuse. Smoking Status: Never smoker Do you use any of these nicotine containing products: None How often do you have a drink containing alcohol: never How often do you have six or more drinks on one occasion: Never AUDIT-C Alcohol total score: 0 Non-prescribed substance use: denies use Little interest or pleasure in doing things: several days Feeling down, depressed, or hopeless: not at all service: No Exam Narrative: Exam Narrative: Vital signs as noted above. In general, an alert, well-appearing patient. Head: Normocephalic, atraumatic. Eyes: Pupils are equal reactive. Extraocular movements are full. Conjunctivae are normal. ENT: Mucous membranes are moist. Throat is normal. Neck: Supple without lymphadenopathy. Heart: Regular rate and rhythm. No murmur or rub. Lungs: Clear bilaterally. No increased work of breathing, crackles or wheezes. Abdomen: Soft and nontender. No organomegaly. Extremities: Well perfused. No edema. No calf tenderness. Pulses intact. Neurologic: Patient is alert and oriented to person and place. Speech is fluent. Face is symmetric. Moves all extremities equally. Cerebellar function is intact by aljens-ct-[id number] testing. Affect: Normal. Skin: Warm and dry. Well perfused. Const: Vital Signs, click to edit/add: Vital Signs - 24 hr 07/07/24 10:20 07/07/24 11:30 07/07/24 11:41 Temperature 98.1 F Pulse Rate 86 90 Pulse Rate [Right Pulse Oximeter] 83 Respiratory Rate 18 Blood Pressure 136/86 Blood Pressure [Ri ght Upper Arm] 129/78 Pulse Oximetry 97 98 96 Oxygen Delivery Me thod Room Air 07/07/24 11:42 07/07/24 11:45 07/07/24 12:00 Temperature Pulse Rate 87 89 89 Pulse Rate [Right Pulse Oximeter] Respiratory Rate Blood Pressure Blood Pressure [Ri ght Upper Arm] Pulse Oximetry 97 97 97 Oxygen Delivery Me thod 07/07/24 12:01 07/07/24 12:15 07/07/24 12:55 Temperature Pulse Rate 90 93 97 Pulse Rate [Right Pulse Oximeter] Respiratory Rate Blood Pressure 133/78 145/81 H Blood Pressure [Ri ght Upper Arm] Pulse Oximetry 95 96 99 Oxygen Delivery Me thod 07/07/24 12:55 07/07/24 12:56 07/07/24 13:00 Temperature Pulse Rate 97 95 95 Pulse Rate [Right Pulse Oximeter] Respiratory Rate Blood Pressure 145/81 H Blood Pressure [Ri ght Upper Arm] Pulse Oximetry 99 98 97 Oxygen Delivery Me thod 07/07/24 13:02 07/07/24 13:15 07/07/24 13:30 Temperature Pulse Rate 95 92 95 Pulse Rate [Right Pulse Oximeter] Respiratory Rate 18 Blood Pressure 136/78 Blood Pressure [Ri ght Upper Arm] Pulse Oximetry 97 97 97 Oxygen Delivery Me thod 07/07/24 13:31 07/07/24 13:45 Temperature Pulse Rate 94 100 Pulse Rate [Right Pulse Oximeter] Respiratory Rate Blood Pressure 143/84 H Blood Pressure [Ri ght Upper Arm] Pulse Oximetry 97 96 Oxygen Delivery Me thod Documenting provider has reviewed patient's vital signs: yes Course Course ED Course: Patient presents with a drop type event yesterday, which raises possibility for neurologic event or arrhythmia, but with this prolonged time laying on the ground seemingly sleeping. She does not have a seizure history, does not report anything that makes a sound more like seizure. Her exam today is completely unremarkable. She had an EKG which showed a normal sinus rhythm, ventricular rate of 87, no acute ST segment changes and unremarkable T-waves. 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 No previous EKGs available for comparison. Troponin is 0.01, with all of this happening yesterday I think a single troponin is adequate to rule out acute coronary syndrome. I think it would be reasonable to have her set up for a ZIO patch, she does follow-up to the [facility] so probably will have hurt arrange that through her primary doctor. I ordered an MRI as well, read by Radiology as link below but essentially no acute findings. Looks good for age. Other labs are reassuring, white blood cell count is normal at 7.7, hemoglobin of 12.2, metabolic panel shows a mildly low sodium of 132 otherwise entirely normal, blood sugar is 78. TSH 0.72. I have reviewed all this with the patient and her daughter. Unclear exactly what happened yesterday, but I think it is most reasonable to get her back to see primary care 1st, she tells me that she has had a ZIO patch she thinks earlier this year but nobody seems to know exactly what it showed. Would have her primary care doctor review that and they can decide whether make sense to have her back on the ZIO patch given yesterday's events. Neurology follow-up may also be reasonable, reviewed with her that MRI does not rule out possibility of seizure. They are going to look into getting some kind of life flank for her to have. If she has recurrent events would have her come back to the emergency department, otherwise primary care follow-up in the next week. Vital Signs Vital signs: Initial Vital Signs Temperature 98.1 F 07/07/24 10:20 Temperature Source Temporal Artery Scan 07/07/24 10:20 Pulse Rate 83 07/07/24 10:20 Respiratory Rate 18 07/07/24 10:20 Blood Pressure 129/78 07/07/24 10:20 Blood Pressure Mean 95 07/07/24 10:20 Blood Pressure Position Sitting 07/07/24 10:20 Pulse Oximetry 97 07/07/24 10:20 Oxygen Delivery Method Room Air 07/07/24 10:20 Vital Signs Temperature 98.1 F 07/07/24 10:20 Pulse Rate 83 07/07/24 10:20 Respiratory Rate 18 07/07/24 10:20 Blood Pressure 129/78 07/07/24 10:20 Pulse Oximetry 97 07/07/24 10:20 Oxygen Delivery Method Room Air 07/07/24 10:20 Temperature 98.1 F 07/07/24 10:20 Pulse Rate 100 07/07/24 13:45 Respiratory Rate 18 07/07/24 13:02 Blood Pressure 143/84 H 07/07/24 13:31 Pulse Oximetry 96 07/07/24 13:45 Oxygen Delivery Method Room Air 07/07/24 10:20 Medical Decision Making Lab Data Labs: Lab Results 07/07/24 07/07/24 Range/Units 10:52 11:19 WBC 7.71 (4.50-11.00) K/uL RBC 3.82 L (4.00-5.20) m/uL Hgb 12.2 (12.0-16.0) gm/dL Hct 37.2 (33.0-51.0) % MCV 97 (80-100) fL MCH 32 (26-34) pg MCHC 33 (32-36) gm/dL RDW Coeff of Renetta 13.1 (11.5-15.5) % Plt Count 247 (140-440) K/uL Neut % (Auto) 70.6 (42.0-72.0) % Lymph % (Auto) 20.6 (20-44) % Irwin % (Auto) 6.6 (0.0-11.0) % Eos % (Auto) 1.7 (0.0-7.0) % Baso % (Auto) 0.4 (0.0-3.0) % Neut # (Auto) 5.44 (1.7-7.0) K/uL Lymph # (Auto) 1.59 (0.90-2.90) K/uL Irwin # (Auto) 0.50 (0.00-0.90) K/UL Eos # (Auto) 0.13 (0.00-0.50) K/uL Baso # (Auto) 0.03 (0.00-0.30) K/uL Abs Immat Gran (auto) 0.01 (0.00-0.30) K/uL Imm/Tot Granulo (auto) 0.1 % D-Dimer Quant (PE/DVT) 0.94 H (0.00-0.50) ug/ml Sodium 132 L (135-149) mmol/L Potassium 3.8 (3.6-5.1) mmol/L Chloride 97 (96-114) mmol/L Carbon Dioxide 20 (20-32) mmol/L Anion Gap 15 (7-15) mEq/L BUN 22 (7-30) mg/dL Creatinine 1.1 (0.5-1.5) mg/dL Estimated Creat Clear 31.11 Estimated GFR 49 ml/min Glucose 78 (60-115) mg/dL Calcium 9.3 (8.4-10.6) mg/dL TSH 0.728 (0.270-4.200) uIU/mL POC Troponin I 0.01 (0.01-0.04) ng/ml Imaging Data MRI - head: Radiologist's impression: Patient: MONTEZ VILLA Facility: [facility] . Site : 1935 Study: MRI-Head wo-07/07/2024 12:51:11 PM Ordering Physician: Marissa Robertson Final Report: Indication: Syncope/unconscious yesterday Technique: Noncontrast sagittal T1 weighted, axial T2 fast spin echo, FLAIR, and diffusion weighted images of the head. Comparison: No prior studies available for comparison at this institution. Findings: Multiple scattered foci of increased T2 signal within the periventricular and subcortical white matter of both cerebral hemispheres. Moderate cerebral and cerebellar parenchymal volume loss. Partially empty sella. The optic chiasm, pineal gland, and cerebellar tonsils are unremarkable. The ventricles, sulci and gyri are of normal size, shape and contour for age and degree of atrophy. No regions of restricted diffusion. No pathologic susceptibility artifacts. Midline structures are centrally located. No convincing evidence of suspicious intra- or extra-axial fluid collections. Bilateral pseudophakia. Moderate mastoid effusions. Impression: 1. No radiographic evidence of acute intracranial abnormalities. 2. Moderate supratentorial and infratentorial white matter changes are non-specific but most likely related to small vessel ischemic disease. Moderate cerebral volume loss. 3. Moderate mastoid effusions Discharge Plan Discharge Clinical Impression: Syncope Patient Disposition: Home w/ Parent or Adult Condition: Stable Instructions: Syncope (ED) Additional Instructions: I would recommend making an appointment to see your doctor in the next week. Please have them review your previous ZIO patch results, consider repeat ZIO patch in light of yesterday's events. Your MRI today is normal for age, this does not rule out the possibility of seizure and referral to Neurology may be reasonable as well. If you have recurrent episodes, return to the ER. Prescriptions: No Action coenzyme Q10 100 mg capsule PO DAILY zolpidem 10 mg tablet PO .Bedtime as needed PRN valsartan 320 mg tablet PO DAILY magnesium oxide 400 mg (241.3 mg magnesium) tablet PO DAILY atorvastatin 20 mg tablet PO DAILY multivitamin with iron Tablet 1 tab PO QDAY fluticasone propionate [Allergy Relief (fluticasone)] 50 mcg/actuation spray,suspension 2 spray intranasal QDAY Rx Instructions: administer into each nostril levothyroxine 13 mcg capsule 6.25 mcg PO QDAY spironolactone 25 mg tablet 25 mg PO DAILY Follow Up/Referrals: Octavio Lopez MD [Primary Care Provider] - Stand Alone Forms: [employer] Info Instructions
== END 2024-07-07 14:29 | disposition home or self-care (01) ==
PROVIDERS: Emergency Provider Emergency Medicine; PCP Family Medicine
DX: R55 Syncope and collapse (principal); Z13.29 Encounter for screening for other suspected endocrine disorder
CPT/HCPCS: 36415; 70551; 80048; 84443; 84484; 85025; 85379; 93005; 99284

== ENCOUNTER 2025-03-24 07:50 | Outpatient (CLI) | payer MEDICARE, BC, SELFPAY ==
--- NOTE | 2025-03-24 08:15 | CRLHL7_ITS ---
For Patients: As a result of the Century Cures Act, medical imaging exams and procedure reports are released immediately into your electronic medical record. You may view this report before your referring provider. If you have questions, please contact your health care provider. Technique: Double-contrast esophagram performed after the uneventful administration of effervescent crystals and thick barium followed by thin barium. Fluoroscopy time 1 minutes 7 seconds. Indication: Dysphagia r/o mass Comparison: None. Findings: Esophagus: Normal morphology and slightly diminished motility. No stricture or mass. Gastroesophageal reflux: Present to the proximal esophagus. Impression: Spontaneous reflux to the proximal esophagus with mild decreased motility. No hernia or mass. Normal mucosa. Dictated by Kalpesh Daniel MD @ 03/24/2025 9:36:53 AM (Electronically Signed)
== END 2025-03-24 07:51 | disposition home or self-care (01) ==
LOC: RAD 07:51
PROVIDERS: PCP Family Medicine; Visit Provider Otolaryngology
DX: R13.10 Dysphagia, unspecified (principal); K21.9 Gastro-esophageal reflux disease without esophagitis
CPT/HCPCS: 74221

== ENCOUNTER 2025-04-01 10:32 | Outpatient (CLI) | payer MEDICARE, BC, SELFPAY ==
[2025-04-02 20:09] LABS: HPV Source Vaginal
[2025-04-07 10:20] LABS: Pap Test Digital Imaging Done
== END 2025-04-01 10:33 | disposition home or self-care (01) ==
PROVIDERS: PCP Family Medicine; Visit Provider Physician Assistant
DX: Z85.44 Personal history of malignant neoplasm of other female genital organs (principal); Z11.51 Encounter for screening for human papillomavirus (HPV); Z12.4 Encounter for screening for malignant neoplasm of cervix
CPT/HCPCS: 87624; 87625; 88141; 88142; 88175

== ENCOUNTER 2025-04-20 10:57 | Outpatient (CLI) | payer MEDICARE, BC, SELFPAY ==
--- NOTE | 2025-04-20 11:15 | CRLHL7_ITS ---
For Patients: As a result of the Century Cures Act, medical imaging exams and procedure reports are released immediately into your electronic medical record. You may view this report before your referring provider. If you have questions, please contact your health care provider. INDICATION: Nontoxic single thyroid nodule COMPARISON: none TECHNIQUE: Tejada scale and color Doppler images were acquired of the thyroid gland. FINDINGS: Hypoechoic solid nodule right thyroid lobe measures 7 x 8 x 10 millimeters, TR 4. Isthmus measures 3 millimeters. The right lobe measures 3.4 x 1.4 x 1.0 cm and the left lobe measures 3.2 x 1.2 x 1.0 cm in size. Thyroid echotexture is heterogeneous. The color Doppler images demonstrate normal vascularity. There is no evidence of cervical lymphadenopathy or parathyroid mass. IMPRESSION: 1 cm TR 4 nodule right thyroid lobe. One year follow-up could be considered. Dictated by Kalpesh Daniel MD @ 04/20/2025 12:45:00 PM (Electronically Signed)
== END 2025-04-20 10:58 | disposition home or self-care (01) ==
LOC: US 10:58
PROVIDERS: PCP Family Medicine; Visit Provider Otolaryngology
DX: E04.1 Nontoxic single thyroid nodule (principal)
CPT/HCPCS: 76536

== ENCOUNTER 2025-05-04 09:42 | Outpatient (CLI) | payer MEDICARE, BC, SELFPAY ==
--- NOTE | 2025-05-04 10:00 | CRLHL7_ITS ---
For Patients: As a result of the Century Cures Act, medical imaging exams and procedure reports are released immediately into your electronic medical record. You may view this report before your referring provider. If you have questions, please contact your health care provider. INDICATION: Dysphonia, nodule seen on ultrasound, history of breast cancer. TECHNIQUE: Neck CT was performed after the administration of intravenous contrast. IV contrast: 71 mL Isovue 370. COMPARISON: : Thyroid ultrasound 04/20/2025, head MRI 07/07/2024. FINDINGS: No evidence of a mass or enlarged lymph nodes in the neck. The oral cavity, nasopharynx, oropharynx, and hypopharynx are unremarkable. The laryngeal structures are unremarkable. The parotid and submandibular glands are unremarkable. A right thyroid nodule is better evaluated on prior thyroid ultrasound. The great vessels of the neck are patent. There are intraocular lens replacements bilaterally. The visualized paranasal sinuses are clear. The visualized intracranial structures are grossly within normal limits. No acute or aggressive osseous abnormality. Multilevel degenerative disc change in the visualized spine including disc space height loss with endplate bone marrow changes. A 3 mm nodule in the visualized right upper lobe (series 3, image 74).. IMPRESSION: 1. No cervical mass or lymphadenopathy. 2. A 3 mm nodule in the visualized right upper lobe. Further evaluation with dedicated chest CT is recommended. Please note that all CT scans at this facility use dose modulation, iterative reconstruction, and/or weight-based dosing when appropriate to reduce radiation dose to as low as reasonably achievable. Dictated by Dagoberto Chin MD @ 05/05/2025 9:25:49 AM (Electronically Signed)
[2025-05-04 10:12] LABS: Creatinine* 0.9 mg/dL (0.5-1.5); Estimated Glomerular Filt Rate 61 ml/min
== END 2025-05-04 09:43 | disposition home or self-care (01) ==
LOC: CT 09:43
PROVIDERS: PCP Family Medicine; Visit Provider Surgery
DX: R49.0 Dysphonia (principal); R91.8 Other nonspecific abnormal finding of lung field; J38.00 Paralysis of vocal cords and larynx, unspecified; Z85.3 Personal history of malignant neoplasm of breast
CPT/HCPCS: 36415; 70491; 82565; Q9967

== ENCOUNTER 2025-06-02 13:19 | Outpatient (CLI) | payer MEDICARE, BC, SELFPAY ==
--- NOTE | 2025-06-02 14:00 | CRLHL7_ITS ---
For Patients: As a result of the 21st Century Cures Act, medical imaging exams and procedure reports are released immediately into your electronic medical record. You may view this report before your referring provider. If you have questions, please contact your health care provider. INDICATION: Lung nodule. TECHNIQUE: CT chest without contrast. COMPARISON: Neck CT 05/04/2025 FINDINGS: Lungs and pleura: 3 millimeter right apical nodule unchanged atelectasis right middle lobe and lingula. Heart and vasculature: Heart size is normal. Thoracic aorta and pulmonary artery are normal in caliber. Lymph nodes/mediastinum: No mediastinal, hilar, or axillary adenopathy. Chest wall: No masses. Upper abdomen: No significant findings. Small low-attenuation lesion left hepatic lobe incompletely assessed. Bones: Unremarkable for age. IMPRESSION: 1. 3 millimeter right apical nodule follow-up per Fleischner society guidelines FLEISCHNER SOCIETY GUIDELINES - SOLID NODULES: SINGLE LOW RISK - nodule less than 6 mm: No routine follow-up. - nodule 6-8 mm: CT at 6-12 months, then consider CT at 18-24 months. - nodule greater than 8 mm: Consider CT at 3 months, PET/CT or tissue sampling. SINGLE HIGH RISK - nodule less than 6 mm: Optional CT at 12 months. - nodule 6-8 mm: CT at 6-12 months, then CT at 18-24 months. - nodule greater than 8 mm: Consider CT at 3 months, PET/CT or tissue sampling. MULTIPLE LOW RISK - nodule less than 6 mm: No routine follow-up. - nodule 6-8 mm: CT at 3-6 months, then consider CT at 18-24 months. - nodule greater than 8 mm: CT at 3-6 months, then consider CT at 18-24 months. MULTIPLE HIGH RISK - nodule less than 6 mm: Optional CT at 12 months. - nodule 6-8 mm: CT at 3-6 months, then at 18-24 months. - nodule greater than 8 mm: CT at 3-6 months, then at 18-24 months. Please note that all CT scans at this facility use dose modulation, iterative reconstruction, and/or weight-based dosing when appropriate to reduce radiation dose to as low as reasonably achievable. Dictated by Pavithra Neves MD @ 06/07/2025 5:55:08 AM (Electronically Signed)
== END 2025-06-02 13:20 | disposition home or self-care (01) ==
PROVIDERS: PCP Family Medicine; Visit Provider Otolaryngology
DX: R91.1 Solitary pulmonary nodule (principal)
CPT/HCPCS: 71250